=== PATIENT | female | born 1960 | race Caucasian/White ===

== ENCOUNTER → 2020-02-19 11:55 | Outpatient (BNVA) | payer OTHER, SELFPAY | PROVIDERS: Family Provider Nurse Practitioner Family; Visit Provider Nurse Practitioner Family | DX: K21.9 Gastro-esophageal reflux disease without esophagitis (principal); I10 Essential (primary) hypertension; J30.89 Other allergic rhinitis; E78.2 Mixed hyperlipidemia; F41.8 Other specified anxiety disorders; E07.9 Disorder of thyroid, unspecified; E55.9 Vitamin D deficiency, unspecified; Z79.899 Other long term (current) drug therapy | CPT/HCPCS: 80053; 80061; 81001; 82306; 83036; 84443; 85025 ==

== ENCOUNTER 2020-03-29 10:36 | Inpatient (IN) | payer OTHER, SELFPAY ==
[2020-03-29] VITALS (10 sets, daily range): BP systolic 105–169; BP diastolic 67–104; PULSE 66–90; RESP 16–18; TEMP 36.5–37.6; O2SAT 92–98; BMI 30.6
--- NOTE | 2020-03-29 10:38 | ED_ITS ---
HPI - Abdominal Pain General: Chief Complaint: Urogenital-Female Stated Complaint: abd pain Time Seen by Provider: 03/29/20 10:38 History of Present Illness: HPI narrative: 60-year-old female presents to the emergency room with complaint of abdominal pain. She refers the pain to the right middle side of the abdomen. She has had several episodes of vomiting and nausea but no diarrhea. Her last bowel movement was yesterday. She denies any hematemesis or coffee-ground emesis. She has had urgency frequency and dysuria. She has had no known history of nephrolithiasis. MD elicited complaint: abdominal pain Pertinent past history: past UTI Onset (ago): day(s) (1) Pain Consistency: constant Location: RUQ and Other (Right middle abdomen) Severity: moderate Quality: cramping Radiation: none Migration to: no migration Exacerbating factors: other (Worse with urination) Relieving factors: nothing Associated Symptoms: Reports GI cramping, dysuria, nausea, poor appetite and vomiting; Denies bloating, change in bowel habits, change in stool character, chills, coffee ground emesis, constipation, diarrhea, dyspepsia, excessive flatus, fever(s), heartburn, hematochezia, hematuria, hematemesis, fecal incontinence, loose stools, melena and syncope Review of Systems Const: Denies: fever(s) or chills ENMT: Denies: throat pain, ear or mastoid pain, nasal discharge or nasal congestion Card: Denies: syncope Resp: Denies: dyspnea, productive cough or non-productive cough GI: Reports: nausea, vomiting and GI cramping; Denies: hematemesis, coffee ground emesis, heartburn, diarrhea, constipation, bloating, excessive flatus, fecal incontinence, change in bowel habits, change in stool character, hematochezia or melena : Reports: dysuria; Denies: hematuria Skin/Breast: Denies: rash or pruritus PFSH ED PFSH: Medical History Depression with anxiety Environmental and seasonal allergies Essential hypertension GERD (gastroesophageal reflux disease) Mixed hyperlipidemia Thyroid mass Vitamin D deficiency Surgical History H/O colonoscopy Colonoscopy [place] [address] Herrera normal - repeat in 10 yrs 2023 Social History Smoking and tobacco status: never smoked Second hand smoke exposure: No Smoking risk assessment/counseling performed?: No Alcohol intake: never Desire information about alcohol rehabilitation?: No Counseling given: No Physical Exam Const: COMMON NORMALS: no acute distress GENERAL APPEARANCE: cooperative and comfortable ORIENTATION/CONSCIOUSNESS: Yes awake, Yes oriented to person, Yes oriented to place and Yes oriented to time HENMT: COMMON NORMALS: normocephalic, atraumatic and hearing grossly normal bilaterally HEAD & SCALP: normocephalic and atraumatic Eye: COMMON NORMALS: Equal, round and reactive pupils present, EOMs intact bilaterally, conjunctivae normal and no scleral icterus CONJUNCTIVA: Yes conjunctivae normal PUPIL: Yes Equal, round and reactive pupils present Neck/C-Spine: COMMON NORMALS: full ROM, no lymphadenopathy, supple and no JVD Lymph: LYMPHATIC: no lymphadenopathy noted and no lymphedema noted Resp: COMMON NORMALS: normal respiratory effort, No retractions, No use of accessory muscles and clear to auscultation bilaterally AUSCULTATION: clear to auscultation bilaterally Cardio: COMMON NORMALS: no JVD, regular rate, regular rhythm and No murmurs present (Cardio) RATE: regular rate RHYTHM: regular rhythm GI: COMMON NORMALS: Soft to palpation and No hepatosplenomegaly present AUSCULTATION: Yes normoactive bowel sounds PALPATION: Yes Soft to palpation, No Tenderness to palpation present (GI), No Guarding due to palpation present (GI) and Yes No hepatosplenomegaly present : BLADDER/KIDNEY EXAM: Yes CVA tenderness Back/Pelvis: GENERAL BACK: Yes CVA tenderness CVA tenderness: right Extremity: COMMON NORMALS: normal to inspection, capillary refill normal, no clubbing, cyanosis or edema, no calf tenderness and no pedal edema Neuro: SENSORIUM/ORIENTATION: Yes oriented to person, Yes oriented to place and Yes oriented to time Skin: COMMON NORMALS: no rashes or lesions noted GENERAL SKIN EXAM: no rashes or lesions noted Course Vital Signs: Vital signs: Vital Signs Temperature 98.6 F 03/30/20 07:22 Pulse Rate 67 03/30/20 07:22 Respiratory Rate 22 H 03/30/20 07:22 Blood Pressure 138/80 03/30/20 07:22 Pulse Oximetry 91 03/30/20 07:22 MDM - Abdominal Pain MDM Narrative: Medical decision making narrative: Patient has significant CVA tenderness on the right we will go ahead and admit with a pyelonephritis. IV antibiotics IV fluid support and pain control. Patient has asymptomatic cholelithiasis with no evidence of cholecystitis Lab Data: Labs: Lab Results 03/29/20 03/29/20 03/29/20 Range/Units 10:54 10:54 10:54 WBC 14.4 H (4.0-10.0) 10^3/ uL RBC 5.05 (4.1-5.3) 10^6/u L Hgb 14.8 (11.5-15.3) g/dL Hct 44.4 (37.0-47.0) % MCV 87.9 (81-99) fL MCH 29.3 (28.0-34.0) pg MCHC 33.3 (30.0-36.0) g/dL RDW 11.7 L (12.1-15.1) % Plt Count 274 (130-400) 10^3/c mm MPV 10.1 (7.4-10.4) fL Neut % (Auto) 86.0 % Lymph % (Auto) 7.9 % Concho % (Auto) 5.3 % Eos % (Auto) 0.1 % Baso % (Auto) 0.2 % Neut # (Auto) 12.39 H (1.8-7.7) 10^3/u L Lymph # (Auto) 1.1 (0.8-4.8) 10^3/u L Concho # (Auto) 0.8 (0.2-0.9) 10^3/u L Eos # (Auto) 0.0 (0.0-0.8) 10^3/u L Baso # (Auto) 0.0 (0.0-0.1) 10^3/u L Nucleated RBC % (a uto) 0 % Nucleated RBCs # 0.0 /100WBC Sodium 138 (136-145) mmol/L Potassium 3.5 (3.5-5.1) mmol/L Chloride 102 (98-107) mmol/L Carbon Dioxide 24 (22-29) mmol/L Anion Gap 15.5 (5-19) BUN 15 (8-23) mg/dL Creatinine 0.8 (0.5-0.9) mg/dL GFR Calculation 72.7 L (90-130) mL/min Glucose 173 H (65-115) mg/dL Calculated Osmolal ity 286 (285-295) mOsm/k g Lactic Acid 2.8 H (0.5-2.2) mmol/L Lactic Acid (Sepsi s) (0.5-2.2) mmol/L Calcium 9.8 (8.5-10.5) mg/dL Total Bilirubin 0.5 (0.15-1.2) mg/dL AST 23 (0-32) U/L ALT 23 (0-33) U/L Alkaline Phosphata se 58 (35-105) IU/L Total Protein 8.5 (6.6-8.7) g/dL Albumin 5.0 (3.5-5.2) g/dL Globulin 3.5 (1.3-4.6) g/dL Lipase (13-60) U/L Urine Color (Yellow) Urine Appearance (CLEAR) Urine pH (5-7) Ur Specific Gravit y (1.005-1.030) Urine Protein (Negative) Urine Glucose (UA) (Normal) Urine Ketones (Negative) Urine Blood (Negative) Urine Nitrate (Negative) Urine Bilirubin (NEGATIVE) Urine Urobilinogen (Negative) mg/dL Ur Leukocyte Galina ase (Negative) Urine RBC (0-2) /hpf Urine WBC (0-5) /hpf Ur Squamous Epith Cells (0-5) Amorphous Sediment Urine Bacteria (NONE) 03/29/20 03/29/20 03/29/20 Range/Units 10:54 12:16 13:52 WBC (4.0-10.0) 10^3/ uL RBC (4.1-5.3) 10^6/u L Hgb (11.5-15.3) g/dL Hct (37.0-47.0) % MCV (81-99) fL MCH (28.0-34.0) pg MCHC (30.0-36.0) g/dL RDW (12.1-15.1) % Plt Count (130-400) 10^3/c mm MPV (7.4-10.4) fL Neut % (Auto) % Lymph % (Auto) % Concho % (Auto) % Eos % (Auto) % Baso % (Auto) % Neut # (Auto) (1.8-7.7) 10^3/u L Lymph # (Auto) (0.8-4.8) 10^3/u L Concho # (Auto) (0.2-0.9) 10^3/u L Eos # (Auto) (0.0-0.8) 10^3/u L Baso # (Auto) (0.0-0.1) 10^3/u L Nucleated RBC % (a uto) % Nucleated RBCs # /100WBC Sodium (136-145) mmol/L Potassium (3.5-5.1) mmol/L Chloride (98-107) mmol/L Carbon Dioxide (22-29) mmol/L Anion Gap (5-19) BUN (8-23) mg/dL Creatinine (0.5-0.9) mg/dL GFR Calculation (90-130) mL/min Glucose (65-115) mg/dL Calculated Osmolal ity (285-295) mOsm/k g Lactic Acid (0.5-2.2) mmol/L Lactic Acid (Sepsi s) 2.7 H (0.5-2.2) mmol/L Calcium (8.5-10.5) mg/dL Total Bilirubin (0.15-1.2) mg/dL AST (0-32) U/L ALT (0-33) U/L Alkaline Phosphata se (35-105) IU/L Total Protein (6.6-8.7) g/dL Albumin (3.5-5.2) g/dL Globulin (1.3-4.6) g/dL Lipase 28 (13-60) U/L Urine Color Yellow (Yellow) Urine Appearance Hazy A (CLEAR) Urine pH 6.5 (5-7) Ur Specific Gravit y 1.010 (1.005-1.030) Urine Protein Neg (Negative) Urine Glucose (UA) Norm (Normal) Urine Ketones Negative (Negative) Urine Blood 2+ H (Negative) Urine Nitrate Negative (Negative) Urine Bilirubin Neg (NEGATIVE) Urine Urobilinogen Norm (Negative) mg/dL Ur Leukocyte Galina ase 2+ H (Negative) Urine RBC 0-4 H (0-2) /hpf Urine WBC 10-15 H (0-5) /hpf Ur Squamous Epith Cells 0-4 H (0-5) Amorphous Sediment Not Reportable Urine Bacteria 4+ H (NONE) Discharge Plan Discharge Patient Disposition: Admitted As Inpatient Admit Provider: Leela Wiseman Clinical Impression: Pyelonephritis, Sepsis, Cholelithiasis Condition: Stable Interventions: ED Discharge Assessment Last Done: 03/29/20 14:59 ED Charges Last Done: 03/29/20 14:59 Discharge Date/Time: 03/29/20 15:00 Coding Level of Care Code ED Hand Alterations Seamstress for Chg Fwd Exam Comprehensive
[2020-03-29] MEDS: sodium chloride 0.9% 1,000 ML 999 ML IV ×2 (10:59→13:48)
[2020-03-29] MEDS: ondansetron 2 mg/ML SDV 2 mL 4 MG IVP (10:59)
[2020-03-29 11:01] LABS: Basophils % 0.2 %; Eosinophils % 0.1 %; Hematocrit 44.4 % (37.0-47.0); Hemoglobin 14.8 g/dL (11.5-15.3); Lymphocytes # 1.1 10^3/uL (0.8-4.8); Lymphocytes % 7.9 %; Mean Corpuscular HGB Conc 33.3 g/dL (30.0-36.0); Mean Corpuscular Hemoglobin 29.3 pg (28.0-34.0); Mean Corpuscular Volume 87.9 fL (81-99); Mean Platelet Volume 10.1 fL (7.4-10.4); Monocytes # 0.8 10^3/uL (0.2-0.9); Monocytes % 5.3 %; Neutrophils # 12.39 10^3/uL (1.8-7.7); Nucleated Red Blood Cells % 0 %; Platelet Count 274 10^3/cmm (130-400); Red Blood Count 5.05 10^6/uL (4.1-5.3); Red Cell Distribution Width 11.7 % (12.1-15.1); White Blood Count 14.4 10^3/uL (4.0-10.0)
[2020-03-29 11:23] LABS: Alanine Aminotransferase 23 U/L (0-33); Alkaline Phosphatase 58 IU/L (35-105); Anion Gap 15.5 (5-19); Aspartate Amino Transferase 23 U/L (0-32); Blood Urea Nitrogen 15 mg/dL (8-23); Calcium 9.8 mg/dL (8.5-10.5); Carbon Dioxide 24 mmol/L (22-29); Chloride 102 mmol/L (98-107); Globulin 3.5 g/dL (1.3-4.6); Glomerular Filtration Rate 72.7 mL/min (90-130); Glucose 173 mg/dL (65-115); Osmolality Calculated 286 mOsm/kg (285-295); Potassium 3.5 mmol/L (3.5-5.1); Sodium 138 mmol/L (136-145); Total Bilirubin 0.5 mg/dL (0.15-1.2); Total Protein 8.5 g/dL (6.6-8.7)
[2020-03-29 11:50] LABS: Lactic Sepsis W/Reflex 2.8 mmol/L (0.5-2.2)
--- NOTE | 2020-03-29 12:39 | CT_ITS ---
WS: [id number] CT ABDOMEN AND PELVIS WITH CONTRAST HISTORY: Abdominal pain. TECHNIQUE: Imaging performed of the abdomen and pelvis with IV contrast. Single phase imaging of the abdomen. Coronal and sagittal reformats are submitted. All CT scans at [facility] use at least one of these dose optimization techniques: automated exposure control; mA and/or kV adjustment per patient size (includes targeted exams where dose is matched to clinical indication); or iterativ e reconstruction. IV CONTRAST: Omnipaque 300; 95 mL IV. Oral contrast: No DLP: 1031.68 mGy.cm COMPARISON: None available. Lower thorax: Mild dependent changes at the lung bases. Heart is normal size. Large hiatal hernia. Ap proximately 50% of the stomach is intrathoracic. Liver/biliary system: Normal size liver. There are a few scattered hypodense areas. Some of these are too small to characterize. The largest in the inferior RIGHT lobe is a cyst measuring 13 x 16 mm. No bile duct dilatation. Gallbladder: Normally distended gallbladder. There is mild wall thickening and some mild edema and bernabe ziness at the base of the gallbladder and stones. No common bile duct dilatation. Pancreas: Normal. Spleen: Normal. Adrenal glands: Normal. Right kidney: Too small to characterize hypodensities in the lower pole. No obstruction or mass. Left kidney: Several small cysts the largest measures 11 mm from the medial mid kidney. Aorta: Mild atherosclerosis with no aneurysm. Lymphadenopathy: None. Free fluid: None. GI tract: Normal appendix. Mild fecal retention throughout the colon. No strictures or obstruction. Abdominal wall: Very small umbilical hernia. Contains fat only. Pelvis: Atrophic uterus. No pelvic mass or adenopathy. Urinary bladder is negative. Bones: Degenerative disc disease at L5-S1. CT/CT abdomen pelvis w con* [id number] IMPRESSION: 1. Findings suspicious for early cholecystitis with associated cholelithiasis. 2. No bile duct dilatation. 3. Hepatic cyst. 4. Normal appendix.
[2020-03-29 12:46] LABS: Add Urine Microscopic? YES; Bilirubin Urine Neg (NEGATIVE); Blood Urine 2+ (Negative); Glucose Urine UA Norm (Normal); Ketones Urine Negative (Negative); Leukocyte Esterase Urine 2+ (Negative); Nitrate Urine Negative (Negative); Protein Urine Neg (Negative); Urine Appearance Hazy (CLEAR); Urine Color Yellow (Yellow); Urobilinogen Urine Norm (Negative); pH Urine 6.5 (5-7)
[2020-03-29 12:47] LABS: Add Urine Culture? Yes; Bacteria Urine 4+; RBC Urine 0-4 /hpf (0-2); Squamous Epithelial Cell Urine 0-4 (0-5)
[2020-03-29 13:06] LABS: Reflex Lactate Order REFLEX LACTIC ORDERD
[2020-03-29] MEDS: iohexol 300 mg/mL 100 mL Btl IV (13:32)
[2020-03-29] MEDS: morphine 4 mg/mL SDV 1 mL 2 MG IVP ×2 (13:48→14:56)
[2020-03-29] MEDS: cefTRIAXone 1,000 MG in sodium chloride 0.9% (plus) 50 ML 100 MG IV (14:01)
[2020-03-29 14:12] LABS: Lactic Acid level (Lactate) 2.7 mmol/L (0.5-2.2)
[2020-03-29] MEDS: sodium chloride 0.9% 1,000 ML 100 ML IV (15:49)
--- NOTE | 2020-03-29 16:25 | PM.HP ---
Providers/Chief Complaint Admitting Physician: Leela Wiseman MD Primary Care Provider: JUDITH Domínguez Chief Complaint: abd pain History of Present Illness Mely Harry is a 60 year old female with a past medical history of diabetes mellitus, depression, seasonal allergies, essential hypertension, GERD, hyperlipidemia, thyroid mass and vitamin D deficiency who presents to the ER today complaining of right-sided flank pain that started suddenly.She has had several episodes of vomiting and nausea but no diarrhea. No obstruction or mass in kidneys, no hydronephrosis. Mild fecal retention. Mild wall thickening around GB but clinically no evangelista sign. LFts within range. Review of Systems General: Reports: 10 or more systems reviewed and unremarkable except in HPI and below Const: Denies: fever(s), chills or body aches Eyes: Denies: change in vision, blurry vision or photophobia ENMT: Reports: hoarseness; Denies: throat pain, enlarged tonsils, odynophagia or nasal congestion Card: Denies: chest pain, palpitations, irregular heart rhythm, edema, swelling of feet/ankles, lightheadedness, pre-syncope, dyspnea on exertion or orthopnea Resp: Denies: dyspnea, productive cough, non-productive cough, wheezing, stridor, pain on inspiration, change in phlegm color, hemoptysis or chest congestion GI: Denies: abdominal pain, nausea, vomiting, hematemesis, coffee ground emesis, dysphagia, heartburn, diarrhea, constipation, GI cramping, change in stool character, hematochezia or melena : Denies: flank pain, difficulty voiding, dysuria, urinary frequency, urinary urgency, urinary hesitancy or hematuria Musc: Denies: neck pain, back pain, extremity pain, joint swelling, joint warmth or deformity Neuro: Denies: headache(s), numbness in extremities, weakness in extremities, sensory changes, difficulty walking, frequent falls, dizziness, vertigo, behavioral changes, Slurred speech present or seizure-like activity Psych: Denies: anxiety, depression, suicidal ideation or homicidal ideation Endo: Denies: polyuria, polydipsia, tired all the time, cold intolerance or hot flashes Rashad/Lymph: Denies: easy bruising or easy bleeding Medications/Allergies Home Medications Medication Instructions Recorded Confirmed Last Taken Type fenofibrate nanocrystallized 145 145 mg PO DAILY 90 Days #90 tab 02/19/20 03/29/20 03/28/20 Rx mg tablet fluticasone propionate 50 1 spray INTRANASAL BID 90 Days #16 02/19/20 03/29/20 03/29/20 Rx mcg/actuation nasal gm spray,suspension lisinopril 10 mg tablet 10 mg PO DAILY 90 Days #90 tab 02/19/20 03/29/20 03/29/20 Rx montelukast 10 mg tablet 10 mg PO DAILY 90 Days #90 tab 02/19/20 03/29/20 03/28/20 Rx pantoprazole 40 mg tablet,delayed 40 mg PO QAM 90 Days #90 tab 02/19/20 03/29/20 03/28/20 Rx release paroxetine HCl 20 mg tablet 20 mg PO DAILY 90 Days #90 tab 02/19/20 03/29/20 03/28/20 Rx [id number] 1 tab PO BID 03/29/20 03/29/20 03/28/20 History [Citracal-D3 Maximum Plus] docusate sodium 100 mg PO DAILY 03/29/20 03/29/20 03/28/20 History ergocalciferol (vitamin D2) 50,000 unit PO Q30D 03/29/20 03/29/20 02/28/20 History multivitamin 1 tab PO DAILY 03/29/20 03/29/20 03/28/20 History omega 1-sqi-pzw-fish oil [Fish Oil] 1 cap PO DAILY 03/29/20 03/29/20 03/28/20 History Allergies Allergy/AdvReac Type Severity Reaction Status Date / Time No Known Allergies Allergy Verified 02/26/20 14:17 PFSH Acute PFSH: Medical History Depression with anxiety Environmental and seasonal allergies Essential hypertension GERD (gastroesophageal reflux disease) Mixed hyperlipidemia Thyroid mass Vitamin D deficiency Surgical History H/O colonoscopy [place] [address] Herrera normal - repeat in 10 yrs 2023 Social History Smoking and tobacco status: never smoked Second hand smoke exposure: No Smoking risk assessment/counseling performed?: No Alcohol intake: never Desire information about alcohol rehabilitation?: No Counseling given: No Vitals/I&O/Wt Last Vital Signs Temp 98.8 F 03/29/20 15:51 Pulse 70 03/29/20 15:51 Resp 18 03/29/20 15:51 BP 152/80 03/29/20 15:51 Pulse Ox 94 03/29/20 15:51 03/29/20 03/29/20 03/29/20 06:59 14:59 22:59 Intake Total 2049 Balance 2049 Weight last 48 hrs Weight 83.461 kg Physical Exam Narrative: EXAM NARRATIVE: GEN: Awake, alert and oriented, no acute distress CVS: S1S2 N RS: CTA B/L Abd: Soft, nt/nd , bs+ 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 Data : 03/29/20 10:54 03/29/20 10:54 Micro: Microbiology 03/29/20 10:50 Blood Culture - Preliminary Blood SPECIMEN COLLECTED 03/29/20 10:54 Blood Culture - Preliminary Blood SPECIMEN COLLECTED A&P Assessment and plan (1) Sepsis: Status: Acute Qualifiers: Sepsis type: sepsis due to unspecified organism Sepsis acute organ dysfunction status: without acute organ dysfunction Qualified Code(s): A41.9 - Sepsis, unspecified organism (2) Pyelonephritis: Status: Acute (3) Cholelithiasis: Status: Acute Qualifiers: Cholelithiasis location: gallbladder Cholecystitis presence: without cholecystitis Biliary obstruction: without biliary obstruction Qualified Code(s): K80.20 - Calculus of gallbladder without cholecystitis without obstruction Additional A&P Information # Sepsis given leukocytosis, elevated lactate and likely source of infection + UA, + CVa tenderness right side Strat zosyn empirically check blood cx await urine cx Cholecytistis on CT abdomen but no clinical signs compatible with this, however check US gall baldder to evalute further. LFT within range. no pancreatitis on CT IVF NS clear liquid diet for now Attestations Medical Necessity Statement*: anticipate >2midnigh admisison for sepsis with pyelonephritis Coding Level of Care Code Acute Junior Technical Writer for Chg Fwd Diagnoses Sepsis A41.9 Sepsis type: sepsis due to unspecified organism Sepsis acute organ dysfunction status: without acute organ dysfunction Pyelonephritis N12 Cholelithiasis K80.20 Cholelithiasis location: gallbladder Cholecystitis presence: without cholecystitis Biliary obstruction: without biliary obstruction
[2020-03-29] MEDS: fluticasone nasal spray 16gm Btl 1 SPRAY INTRANASAL (16:59)
[2020-03-29] MEDS: enoxaparin 40 mg/0.4 mL Syringe SUBCUT (16:59)
[2020-03-29] MEDS: piperacillin-tazobactam 3.375 GM in sodium chloride 0.9% (plus) 50 ML IV (17:59)
[2020-03-29 19:29] LABS: Lipase 28 U/L (13-60)
[2020-03-30] VITALS (11 sets, daily range): BP systolic 106–142; BP diastolic 65–80; PULSE 65–93; RESP 16–22; TEMP 36.7–37.7; O2SAT 91–96
[2020-03-30] MEDS: piperacillin-tazobactam 3.375 GM in sodium chloride 0.9% (plus) 50 ML IV ×2 (01:40→12:45)
[2020-03-30] MEDS: sodium chloride 0.9% 1,000 ML 100 ML IV ×3 (01:40→23:22)
[2020-03-30] MEDS: ondansetron 2 mg/ML SDV 2 mL 4 MG IVP ×2 (01:43→23:45)
[2020-03-30] MEDS: HYDROmorphone 1 mg/mL INJ 1 mL IVP ×3 (01:43→23:39)
[2020-03-30 04:58] LABS: Basophils % 0.2 %; Hematocrit 38.3 % (37.0-47.0); Hemoglobin 12.4 g/dL (11.5-15.3); Lymphocytes # 1.5 10^3/uL (0.8-4.8); Lymphocytes % 13.2 %; Mean Corpuscular HGB Conc 32.4 g/dL (30.0-36.0); Mean Corpuscular Volume 92.5 fL (81-99); Mean Platelet Volume 10.7 fL (7.4-10.4); Monocytes # 0.8 10^3/uL (0.2-0.9); Monocytes % 6.7 %; Neutrophils # 9.12 10^3/uL (1.8-7.7); Neutrophils % 79.3 %; Nucleated Red Blood Cells % 0 %; Platelet Count 225 10^3/cmm (130-400); Red Blood Count 4.14 10^6/uL (4.1-5.3); White Blood Count 11.5 10^3/uL (4.0-10.0)
[2020-03-30 05:31] LABS: Alanine Aminotransferase 35 U/L (0-33); Albumin Level 3.7 g/dL (3.5-5.2); Alkaline Phosphatase 44 IU/L (35-105); Anion Gap 11.4 (5-19); Aspartate Amino Transferase 44 U/L (0-32); Blood Urea Nitrogen 10 mg/dL (8-23); Calcium 8.4 mg/dL (8.5-10.5); Carbon Dioxide 26 mmol/L (22-29); Chloride 108 mmol/L (98-107); Globulin 2.9 g/dL (1.3-4.6); Glomerular Filtration Rate 56.2 mL/min (90-130); Glucose 135 mg/dL (65-115); Osmolality Calculated 292 mOsm/kg (285-295); Potassium 3.4 mmol/L (3.5-5.1); Sodium 142 mmol/L (136-145); Total Bilirubin 0.5 mg/dL (0.15-1.2); Total Protein 6.6 g/dL (6.6-8.7)
[2020-03-30] MEDS: pantoprazole DR 40 mg Tablet PO ×2 (05:41→08:21)
[2020-03-30] MEDS: docusate sodium 100 mg Capsule PO (08:21)
[2020-03-30] MEDS: montelukast sodium 10 mg Tablet PO (08:21)
[2020-03-30] MEDS: lisinopril 10 mg Tablet PO (08:22)
[2020-03-30] MEDS: acetaminophen 325 mg Tablet 650 MG PO (10:30)
--- NOTE | 2020-03-30 10:41 | PC.CHAP ---
Pastoral Care Encounter/Spiritual Assessment Type of Contact [] Declined cnc mill programmer visit [] Patient/Family/Request visit [] Outpatient visit [] Follow-up visit [] Physician referral [] Code/Alert [] Routine visit [] Staff referral [] Actively dying [] Patient sleeping [] Family support [] [] Out of room [] Palliative care [] [] Receiving care in room [] Pre-surgical visit [] Trauma [] Long length of stay [] ICU visit [] Other: Relational/Emotional Strength [] Patient feels connected with others/family/visitors/staff [] Distress [] Loneliness/isolation [] Abandonment Spirituality of Patient [] Person of Ivone [] Attends Sikhism of their Ivone [] Believes in Prayer [] Reads Bible or Orthodox materials [] There are Spiritual issues to be addressed Customer Account Executive Interventions [] Prayer [] Active listening [] Non-anxious presence [] Spiritual/emotional support [] Crisis/trauma care [] Spiritual counseling [] Bereavement support [] Provided bereavement packet [] Provided Bible/devotional materials [] Provided toy/stuffed animal, coloring book to patient or family member [] Provided Communion [] Anointing/[place] [] Salvation [] Completed spiritual assessment [] Other: Impact on Illness or Injury [] Angry [] Fearful [] Anxious [] Often cries [] Exhaustion [] Unable to work [] Unable to attend rastafari [] Unable to walk/stand [] Unable to read [] Unable to drive [] Unable to eat/drink [] Unable to sleep [] Unable to be with family [] Patient intubated [] Other: Summary Patient busy with Staff, needs Follow up visit. Time spent with patient
[2020-03-30] MEDS: fluticasone nasal spray 16gm Btl 1 SPRAY INTRANASAL ×2 (11:12→17:33)
[2020-03-30] MEDS: fenofibrate 145 mg Tablet PO (11:17)
--- NOTE | 2020-03-30 13:03 | P.PN_ITS ---
Subjective Subjective: Interval history: Leukocytosis trending down to 11.5. Hemoglobin stable 12.4. Potassium at 3.4 today. Creatinine stable at 1.0. AST ALT mildly elevated at 44 and 35. Alkaline phosphatase 90 bili within range. T-max 99.7 overnight. Elongated gallbladder. No stones on ultrasound. Focal gallbladder wall thickening likely related to tumefactive sludge. Urine culture showing gram-negative rods greater than 100,000 colonie, pending identification. 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 Ext: R flank and epigatsric tenderness Data : 03/30/20 04:25 03/30/20 04:25 Micro: Microbiology 03/29/20 10:50 Blood Culture - Preliminary Blood NEGATIVE TO DATE 03/29/20 10:54 Blood Culture - Preliminary Blood NEGATIVE TO DATE 03/29/20 12:16 Urine Culture - Preliminary Urine,Clean Catch Gram Negative Rods A&P Assessment and plan (1) Sepsis: Status: Acute (2) Pyelonephritis: Status: Acute (3) Cholelithiasis: Status: Acute Additional A&P Information # Sepsis criteria met with leukocytosis, elevated lactate and source of infection + UA, urine cx with prelim GNR + CVA tenderness right side Clinical presentation appears to be most consistent with right-sided pyelonephritis. No obstructive stones or hydronephrosis seen on recent CAT scan. Continue zosyn empirically until gram-negative rods can be identified and guaman sceptibilities obtained. blood cx is negative to date Cholecytistis on CT abdomen and also with thickened gallbladder wall on recent ultrasound. The patient does not have classical Rivera sign on presentation and there appears to be an alternate explanation, uncertain if gallbladder could be contributing at this point as well. Will consult surgical services to evaluate further for cholecystitis. IVF NS @75cc/hr Patient wishes to advance her diet today, mechanical soft ordered. Prophylaxis with Lovenox Attestations Medical Necessity Statement*: Ongoing need for IV antibiotics, IV hydration in view of right-sided pyelonephritis and sepsis Coding Level of Care Code Acute Body Straightener for [facility] Fwd Diagnoses Sepsis A41.9 Pyelonephritis N12 Cholelithiasis K80.20
--- NOTE | 2020-03-30 16:30 | US_ITS ---
WS: [id number] RIGHT UPPER QUADRANT ULTRASOUND HISTORY: Cholecystitis noted on CT COMPARISON: CT 03/29/2020 Liver: 16.4 cm in length. Liver slightly enlarged with mild diffuse hepatic steatosis. Lobulated hepa tic cyst in the RIGHT lobe measures 2.5 x 1.8 x 1.7 cm. Gallbladder: Gallbladder is slightly elongated. Mild diffuse wall thickening measuring up to 7 mm. Mo re focal wall thickening seen on the transverse imaging on the hepatic side measuring additional 5 mm . This could be an area of tumefactive sludge. No stones are identified by CT. Stones about to be pre sent on the prior ultrasound. CBD: 0.4 cm Pancreas: Normal size and echogenicity. Right kidney: 11.0 cm in length. Normal size and echogenicity. Aorta and IVC: Unremarkable abdominal aorta and IVC. No ascites. US/US gall bladder [id number] IMPRESSION: 1. Mildly elongated gallbladder with diffuse wall thickening. No stones are id entified by ultrasound. Cholelithiasis was thought to be present on the recent CT. 2. Focal gallbladder wall thickening. Could be tumefactive sludge adhered to t he gallbladder. Early neoplasm is not excluded. There is no increased vasculari ty. 3. Mild hepatic steatosis and hepatomegaly.
[2020-03-30] MEDS: enoxaparin 40 mg/0.4 mL Syringe SUBCUT (17:33)
[2020-03-30] MEDS: PARoxetine 20 mg Tablet PO (19:56)
[2020-03-30] MEDS: ketorolac 30 mg/mL INJ 15 MG IVP (20:04)
[2020-03-30] MEDS: lidocaine 1% INJ 20 mL 5 ML IV (21:26)
[2020-03-30] MEDS: potassium chloride premix 40 MEQ/100 ML PREMIX 25 MEQ IV (21:26)
[2020-03-31] VITALS (10 sets, daily range): BP systolic 100–156; BP diastolic 54–82; PULSE 57–85; RESP 16–20; TEMP 36.6–37.5; O2SAT 86–97
[2020-03-31] MEDS: piperacillin-tazobactam 3.375 GM in sodium chloride 0.9% (plus) 50 ML IV ×3 (00:02→18:00)
[2020-03-31 04:55] LABS: Basophils % 0.3 %; Eosinophils % 0.3 %; Hemoglobin 11.6 g/dL (11.5-15.3); Lymphocytes # 1.6 10^3/uL (0.8-4.8); Lymphocytes % 16.9 %; Mean Corpuscular HGB Conc 31.4 g/dL (30.0-36.0); Mean Corpuscular Hemoglobin 29.4 pg (28.0-34.0); Mean Corpuscular Volume 93.7 fL (81-99); Mean Platelet Volume 10.4 fL (7.4-10.4); Monocytes # 0.6 10^3/uL (0.2-0.9); Monocytes % 5.9 %; Neutrophils # 7.15 10^3/uL (1.8-7.7); Neutrophils % 76.1 %; Nucleated Red Blood Cells % 0 %; Platelet Count 191 10^3/cmm (130-400); Red Blood Count 3.95 10^6/uL (4.1-5.3); Red Cell Distribution Width 11.9 % (12.1-15.1); White Blood Count 9.4 10^3/uL (4.0-10.0)
[2020-03-31 05:15] LABS: Lactate (Lactic Acid level) 0.9 mmol/L (0.5-2.2)
[2020-03-31 05:21] LABS: Alanine Aminotransferase 49 U/L (0-33); Albumin Level 3.6 g/dL (3.5-5.2); Alkaline Phosphatase 42 IU/L (35-105); Anion Gap 15.6 (5-19); Aspartate Amino Transferase 37 U/L (0-32); Blood Urea Nitrogen 13 mg/dL (8-23); Calcium 8.1 mg/dL (8.5-10.5); Carbon Dioxide 22 mmol/L (22-29); Chloride 108 mmol/L (98-107); Globulin 3.1 g/dL (1.3-4.6); Glomerular Filtration Rate 84.8 mL/min (90-130); Glucose 108 mg/dL (65-115); Osmolality Calculated 291 mOsm/kg (285-295); Potassium 3.6 mmol/L (3.5-5.1); Sodium 142 mmol/L (136-145); Total Bilirubin 0.4 mg/dL (0.15-1.2); Total Protein 6.7 g/dL (6.6-8.7)
[2020-03-31] MEDS: HYDROmorphone 1 mg/mL INJ 1 mL IVP ×2 (09:34→14:36)
[2020-03-31] MEDS: docusate sodium 100 mg Capsule PO (10:53)
[2020-03-31] MEDS: montelukast sodium 10 mg Tablet PO (10:53)
[2020-03-31] MEDS: pantoprazole DR 40 mg Tablet PO (10:54)
[2020-03-31] MEDS: fenofibrate 145 mg Tablet PO (10:54)
[2020-03-31] MEDS: lisinopril 10 mg Tablet PO (10:55)
--- NOTE | 2020-03-31 11:00 | P.PN_ITS ---
Subjective Subjective: Interval history: Afebrile, hemodynamically stable, leukocytosis continues to trend down, now normalized, E. coli isolated from urine cultures. Underwent HIDA scan due to persistent concern for cholecystitis and did show cystic duct blockage with poorly visualized gallbladder concerning for acute cholecystitis. Continues to feel nauseous, she ate 2 bites of her pancake and 1 bite of eggs today since then has been n.p.o. AST ALT at 37 and 49. T bili alkaline phosphatase within range. Medications: Reviewed: Yes Vitals/I&O/Wt Last Vital Signs Temp 98.8 F 03/31/20 09:20 Pulse 70 03/31/20 09:20 Resp 18 03/31/20 09:34 BP 156/82 03/31/20 09:20 Pulse Ox 97 03/31/20 09:34 03/30/20 03/31/20 03/31/20 22:59 06:59 14:59 Intake Total 1290 / 2960 200 / 3160 Balance 1290 / 2960 200 / 3160 Physical Exam Narrative: EXAM NARRATIVE: GEN: Awake, alert and oriented, moderate distress secondary to pain. CVS: S1S2 N RS: CTA B/L Abd: Soft, nt/nd , bs+ SEATING UPHOLSTERER: no focal neuro deficits Data : 03/31/20 04:35 03/31/20 04:35 Micro: Microbiology 03/29/20 12:16 Urine Culture - Final Urine,Clean Catch Escherichia coli 03/29/20 10:50 Blood Culture - Preliminary Blood NEGATIVE TO DATE 03/29/20 10:54 Blood Culture - Preliminary Blood NEGATIVE TO DATE A&P Assessment and plan (1) Acute cholecystitis: Status: Acute (2) Sepsis: Status: Acute (3) Pyelonephritis: Status: Acute (4) Mixed hyperlipidemia: Status: Acute (5) Vitamin D deficiency: Status: Acute (6) Essential hypertension: Status: Acute (7) Cholelithiasis: Status: Acute Additional A&P Information # Sepsis criteria met with leukocytosis, elevated lactate and source of infection + UA, urine cx with greater than 10,000 colonies of E. coli, + CVA tenderness right side Initial clinical presentation appeared to be most consistent with right-sided pyelonephritis. No obstructive stones or hydronephrosis seen on recent CAT scan. Her multiple studies CT abdomen, ultrasound of the gallbladder with suspicion for cholecystitis. Underwent confirmatory HIDA scan this morning which did show evidence of acute cholecystitis. It is hard to a certain how much of her right- sided flank pain is contributed by acute cholecystitis versus possible pyelonephritis. At any rate we will go ahead and continue broader spectrum coverage with Zosyn to cover for both. Surgery consult with Dr. Johnston, plan for cholecystectomy tomorrow as patient has eaten some breakfast today after her HIDA scan. blood cx is negative to date IVF dNS @75cc/hr Patient has not had a bowel movement since presentation, able to pass some flatus this morning. Will check x-ray abdomen to evaluate for any ileus. pain control wth dilaudid + toradol alternating # HTN: continue lisinopril, currently well controlled Now, n.p.o. past midnight for likely cholecystectomy in the morning. 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
--- NOTE | 2020-03-31 11:03 | XRR_ITS ---
PROCEDURE INFORMATION: Exam: XR Abdomen, 1 View Exam date and time: 03/31/2020 12:19 PM Age: 60 years old Clinical indication: Abdominal pain; Prior surgery; Surgery type: Tubal; Additional info: Distension, evaluate obstruction/ileus, right sided pain TECHNIQUE: Imaging protocol: XR of the abdomen. Views: Frontal supine view of the abdomen. 1 View. COMPARISON: CT abdomen pelvis w con* [id number] 03/29/2020 1:18 PM FINDINGS: Gastrointestinal tract: Bowel gas pattern is nonspecific. No mass effect upon the bowel loops. Distal rectal gas. Scattered loops of air filled small bowel none of which are dilated. Bones/joints: No acute process within the osseous structures of the spine or pelvis. Soft tissues: No appreciable calcifications XR/XR abdomen 1V* [id number] IMPRESSION: Bowel gas pattern is nonspecific.
--- NOTE | 2020-03-31 16:07 | XR_ITS ---
WS: [id number] Portable AP upright chest, 03/31/2020 Clinical Data: hypoxia Comparison: None. Findings: No nodules, masses or effusions are seen. The heart is enlarged. The pulmonary vascularity is not increased. No pneumonia or pneumothorax is seen. There is elevation of the right diaphragm wit h minimal atelectasis over the surface of that diaphragm. There is a hiatal hernia behind the heart. Monitor leads are on the chest wall. XR/XR chest 1V portable [id number] Impression: Cardiomegaly.
[2020-03-31 17:35] LABS: ABG PCO2 37.3 mmHg (35-45); ABG PH Result 7.43 (7.35-7.45); Arterial Blood Gas Hematocrit 37.8 % (37-47); Base Excess ABG 0.8 mmol/L (-2.0-2.0); Blood Gas Allen Test Pos; Blood Gas Sample Site Brachial, right; Blood Gas Sample Type Venous; HCO3 ABG 24.9 mmol/L (22-26); Oxygen Device ROOM AIR
--- NOTE | 2020-03-31 17:49 | NM_ITS ---
WS: [id number] NUCLEAR MEDICINE HIDA SCAN HISTORY: r/o acute cholecystitis COMPARISON: None available. TECHNIQUE: The patient was intravenously injected with 8.2 mCi of TC99m Mebrofenin. Immediate imaging over the right upper quadrant was followed by 5 minute image and additional images for a total of 60 minutes. Normal uptake of radiotracer throughout the liver. At 120 minutes there is no activity in the gallbladder identified. No hyperemia in the gallbladder fo ssa. Activity in the proximal small bowel was seen by 20 minutes. Good washout of the radiotracer from the liver by 60 minutes. NM/NM hepatobiliary wo phar [id number] IMPRESSION: 1. Patent common bile duct. 2. Nonvisualization of the gallbladder most consistent with an obstructed cyst ic duct and acute cholecystitis.
[2020-03-31] MEDS: dextrose 5%-sod chloride 0.9% 1,000 ML 75 ML IV (18:02)
[2020-03-31] MEDS: ketorolac 30 mg/mL INJ 15 MG IVP (19:54)
[2020-03-31] MEDS: PARoxetine 20 mg Tablet PO (19:58)
[2020-04-01] VITALS (17 sets, daily range): BP systolic 92–172; BP diastolic 55–90; PULSE 54–73; RESP 14–24; TEMP 36.2–37.2; O2SAT 88–96
[2020-04-01] MEDS: piperacillin-tazobactam 3.375 GM in sodium chloride 0.9% (plus) 50 ML IV ×2 (01:23→17:46)
[2020-04-01 05:23] LABS: Basophils % 0.5 %; Eosinophils # 0.1 10^3/uL (0.0-0.8); Eosinophils % 1.1 %; Hematocrit 34.6 % (37.0-47.0); Hemoglobin 11.4 g/dL (11.5-15.3); Lymphocytes # 1.4 10^3/uL (0.8-4.8); Lymphocytes % 17.4 %; Mean Corpuscular HGB Conc 32.9 g/dL (30.0-36.0); Mean Corpuscular Hemoglobin 29.8 pg (28.0-34.0); Mean Corpuscular Volume 90.3 fL (81-99); Mean Platelet Volume 10.7 fL (7.4-10.4); Monocytes # 0.5 10^3/uL (0.2-0.9); Monocytes % 6.5 %; Neutrophils # 6.05 10^3/uL (1.8-7.7); Nucleated Red Blood Cells % 0 %; Platelet Count 188 10^3/cmm (130-400); Red Blood Count 3.83 10^6/uL (4.1-5.3); Red Cell Distribution Width 11.7 % (12.1-15.1); White Blood Count 8.2 10^3/uL (4.0-10.0)
[2020-04-01 05:43] LABS: Alanine Aminotransferase 33 U/L (0-33); Albumin Level 3.2 g/dL (3.5-5.2); Alkaline Phosphatase 50 IU/L (35-105); Anion Gap 11.4 (5-19); Aspartate Amino Transferase 22 U/L (0-32); Blood Urea Nitrogen 8 mg/dL (8-23); Calcium 8.5 mg/dL (8.5-10.5); Carbon Dioxide 28 mmol/L (22-29); Chloride 105 mmol/L (98-107); Globulin 3.4 g/dL (1.3-4.6); Glomerular Filtration Rate 72.7 mL/min (90-130); Glucose 112 mg/dL (65-115); Osmolality Calculated 289 mOsm/kg (285-295); Potassium 3.4 mmol/L (3.5-5.1); Sodium 141 mmol/L (136-145); Total Bilirubin 0.5 mg/dL (0.15-1.2); Total Protein 6.6 g/dL (6.6-8.7)
[2020-04-01] MEDS: lisinopril 10 mg Tablet PO (08:02)
[2020-04-01] MEDS: ketorolac 30 mg/mL INJ 15 MG IVP (08:06)
[2020-04-01] MEDS: sodium chloride 0.9% 1,000 ML 30 ML IV (08:30)
--- NOTE | 2020-04-01 08:37 | P.ANESASSM_ITS ---
Pre-Anesthetic Assessment Pre-Anesthetic Assessment: Height/Weight: Height 1.65 m Weight 83.461 kg Temp Pulse Resp BP Pulse Ox 97.1 F L 57 L 18 172/90 94 04/01/20 08:21 04/01/20 08:21 04/01/20 08:21 04/01/20 08:21 04/01/20 08:21 Preop Diagnosis: Acute cholecystitis Proposed Procedure: Operation Date: 04/01/20 09:00 Proposed Procedures p Laparoscopic Cholecystectomy(Not Applicable) - Tomi Johnston MD Familial anesthetic complications: PONV had spinal before and she hurt for ayear afterwards Last intake: Intake Last Liquid Date 03/31/20 Last Liquid Time 23:30 Last Solid Date 03/28/20 Last Solid Time 18:00 Social: Social History: No alcohol and No tobacco Exam: Pre-Anes Outpt Exam: alert, oriented x 3, clear to auscultation bilaterally and regular rate & rhythm Airway: Cervical ROM: WNL MP: 4 Dentition: False Pulmonary: Comments: I feel like i'm getting pneumonia - got put on O2 last night currently 95% on Ra CV/HEM: CV/HEM: HTN GI: GI: GERD Metabolic: Metabolic: Thyroid Comments: Pre-DM Anesthetic Plan: ASA status: 2 Anesthesia: General Risk of > 500 ml blood loss (7ml/kg in children): No Meds/Allergies Current Medications: Current Medications Generic Name Dose Route Start Last Admin Trade Name Freq PRN Reason Stop Dose Admin Acetaminophen 650 mg 03/29/20 16:35 03/30/20 10:30 Tylenol PO 650 mg Q6H PRN Administration Mild/Mod Pain Or Temp >/= 101 Docusate Sodium 100 mg 03/30/20 09:00 04/01/20 08:01 Colace PO Not Given DAILY CANDY Enoxaparin Sodium 40 mg 03/29/20 17:00 03/30/20 17:33 Lovenox SUBCUT 40 mg Q24H CANDY Administration Fenofibrate 145 mg 03/30/20 09:00 03/31/20 10:54 Tricor PO 145 mg DAILY CANDY Administration Fluticasone Propio della 1 spray 03/29/20 18:00 04/01/20 08:02 Flonase INTRANASAL Not Given BID CANDY Hydromorphone HCl 1 mg 03/29/20 20:00 03/31/20 14:36 Dilaudid Inj IVP 1 mg Q4H PRN Administration pain Piperacillin Sod/T azobactam 50 mls @ 12.5 mls /hr 03/29/20 18:00 04/01/20 01:23 Sod 3.375 gm/ So dium Chloride IV 12.5 mls/hr Q8H CANDY Administration Dextrose/Sodium Ch loride 1,000 mls @ 75 ml s/hr 03/31/20 11:15 04/01/20 08:01 Dextrose 5%-Sod Chloride 0.9% IV Not Given .[id number] CANDY Sodium Chloride 1,000 mls @ 30 ml s/hr 04/01/20 08:30 04/01/20 08:30 Sodium Chloride 0.9% IV 04/02/20 08:29 30 mls/hr .Q24H CANDY Administration Ketorolac Trometha mine 15 mg 03/29/20 20:00 04/01/20 08:06 Toradol IVP 04/03/20 19:59 15 mg Q8H PRN Administration MODERATE PAIN Lisinopril 10 mg 03/30/20 09:00 04/01/20 08:02 Prinivil PO 10 mg DAILY CANDY Administration Montelukast Sodium 10 mg 03/30/20 09:00 04/01/20 08:01 Singulair PO Not Given DAILY CANDY Ondansetron HCl 4 mg 03/29/20 15:10 03/30/20 23:45 Zofran IVP 4 mg Q6H PRN Administration NAUSEA AND VOMITI NG Pantoprazole Sodiu m 40 mg 03/30/20 06:00 04/01/20 05:20 Protonix PO Not Given QAM CANDY Paroxetine HCl 20 mg 03/30/20 20:00 03/31/20 19:58 Paxil PO 20 mg DAILY@2000 CANDY Administration PFSH Anesthesia PFSH: Medical History Depression with anxiety Environmental and seasonal allergies Essential hypertension GERD (gastroesophageal reflux disease) Mixed hyperlipidemia Thyroid mass Vitamin D deficiency Surgical History H/O colonoscopy [place] [address] Herrera normal - repeat in 10 yrs 2024 Social History Smoking and tobacco status: never smoked Second hand smoke exposure: No Smoking risk assessment/counseling performed?: No Alcohol intake: never Desire information about alcohol rehabilitation?: No Counseling given: No Data Anesthesia CBC & Chem 7: 04/01/20 05:02 04/01/20 05:02 Other Labs: Laboratory Results - last 48 hr 03/31/20 03/31/20 03/31/20 04:35 04:35 04:35 WBC 9.4 RBC 3.95 L Hgb 11.6 Hct 37.0 MCV 93.7 MCH 29.4 MCHC 31.4 RDW 11.9 L Plt Count 191 MPV 10.4 Neut % (Auto) 76.1 Lymph % (Auto) 16.9 Simpson % (Auto) 5.9 Eos % (Auto) 0.3 Baso % (Auto) 0.3 Neut # (Auto) 7.15 Lymph # (Auto) 1.6 Simpson # (Auto) 0.6 Eos # (Auto) 0.0 Baso # (Auto) 0.0 Nucleated RBC % (auto) 0 Nucleated RBCs # 0.0 Specimen Type Sample Site ABG pH ABG pCO2 ABG pO2 ABG HCO3 ABG Base Excess Mainor Test Hematocrit O2 Delivery Device Research Librarian ID Sodium 142 Potassium 3.6 Chloride 108 H Carbon Dioxide 22 Anion Gap 15.6 BUN 13 Creatinine 0.7 GFR Calculation 84.8 L Glucose 108 Calculated Osmolality 291 Lactate 0.9 Calcium 8.1 L Total Bilirubin 0.4 AST 37 H ALT 49 H Alkaline Phosphatase 42 Total Protein 6.7 Albumin 3.6 Globulin 3.1 03/31/20 04/01/20 04/01/20 17:35 05:02 05:02 WBC 8.2 RBC 3.83 L Hgb 11.4 L Hct 34.6 L MCV 90.3 MCH 29.8 MCHC 32.9 RDW 11.7 L Plt Count 188 MPV 10.7 H Neut % (Auto) 74.0 Lymph % (Auto) 17.4 Simpson % (Auto) 6.5 Eos % (Auto) 1.1 Baso % (Auto) 0.5 Neut # (Auto) 6.05 Lymph # (Auto) 1.4 Simpson # (Auto) 0.5 Eos # (Auto) 0.1 Baso # (Auto) 0.0 Nucleated RBC % (auto) 0 Nucleated RBCs # 0.0 Specimen Type Venous Sample Site Brachial, right ABG pH 7.43 ABG pCO2 37.3 ABG pO2 62.0 L ABG HCO3 24.9 ABG Base Excess 0.8 Mainor Test Pos Hematocrit 37.8 O2 Delivery Device Room air Research Librarian ID Jlg Sodium 141 Potassium 3.4 L Chloride 105 Carbon Dioxide 28 Anion Gap 11.4 BUN 8 Creatinine 0.8 GFR Calculation 72.7 L Glucose 112 Calculated Osmolality 289 Lactate Calcium 8.5 Total Bilirubin 0.5 AST 22 ALT 33 Alkaline Phosphatase 50 Total Protein 6.6 Albumin 3.2 L Globulin 3.4 Micro: Microbiology 03/29/20 12:16 Urine Culture - Final Urine,Clean Catch Escherichia coli Cardiac Studies: No Data to Display
[2020-04-01] MEDS: scopolamine 1.5 Patch 1 PATCH TRANSDERMA (08:51)
--- NOTE | 2020-04-01 11:02 | PM.PN ---
Subjective Subjective: Interval history: Patient denies significant pain, no nausea or vomiting Vitals/I&O/Wt Last Vital Signs Temp 97.1 F L 04/01/20 08:21 Pulse 57 L 04/01/20 08:21 Resp 18 04/01/20 08:21 BP 172/90 04/01/20 08:21 Pulse Ox 94 04/01/20 08:21 03/31/20 04/01/20 04/01/20 22:59 06:59 14:59 Intake Total 50 / 100 Balance 50 / 100 Physical Exam Narrative: EXAM NARRATIVE: Abdomen: Soft Data : 04/01/20 05:02 04/01/20 05:02 Micro: Microbiology 03/29/20 12:16 Urine Culture - Final Urine,Clean Catch Escherichia coli A&P Assessment and plan (1) Acute cholecystitis: Plan for laparoscopic possible open cholecystectomy today Procedure, risks, benefits and alternatives have been discussed with the patient who wishes to proceed with surgery. 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
--- NOTE | 2020-04-01 11:04 | PM.CONSULT ---
Providers/Reason For Consult Consulting Physican/Specialty*: Dr. Wiseman Reason for Consult*: Cholecystitis, date of encounter is a 03/31/2020 Attending Physician: Leela Wiseman MD Primary Care Provider: JUDITH Domínguez History of Present Illness History of Present Illness Mely Harry is a 60 year old female who was admitted to the hospital with right-sided abdominal pain associated nausea and vomiting over the last 24 to 48 hours. Patient is suspected to have pyelonephritis and admitted for IV antibiotics. Her CT scan showed possible acute cholecystitis and therefore a HIDA scan was obtained which showed acute cholecystitis. Currently patient complains of abdominal pain in the right flank and right upper quadrant but no nausea or vomiting. She is tolerating a clear liquid diet. Denies any history of peptic ulcer disease. No fevers or chills. Meds/Allergies Home Medications and Allergies Home Medications Medication Instructions Recorded Confirmed Last Taken Type fenofibrate nanocrystallized 145 145 mg PO DAILY 90 Days #90 tab 02/19/20 03/29/20 03/28/20 Rx mg tablet fluticasone propionate 50 1 spray INTRANASAL BID 90 Days #16 02/19/20 03/29/20 03/29/20 Rx mcg/actuation nasal gm spray,suspension lisinopril 10 mg tablet 10 mg PO DAILY 90 Days #90 tab 02/19/20 03/29/20 03/29/20 Rx montelukast 10 mg tablet 10 mg PO DAILY 90 Days #90 tab 02/19/20 03/29/20 03/28/20 Rx pantoprazole 40 mg tablet,delayed 40 mg PO QAM 90 Days #90 tab 02/19/20 03/29/20 03/28/20 Rx release paroxetine HCl 20 mg tablet 20 mg PO DAILY 90 Days #90 tab 02/19/20 03/29/20 03/28/20 Rx [id number] 1 tab PO BID 03/29/20 03/29/20 03/28/20 History [Citracal-D3 Maximum Plus] docusate sodium 100 mg PO DAILY 03/29/20 03/29/20 03/28/20 History ergocalciferol (vitamin D2) 50,000 unit PO Q30D 03/29/20 03/29/20 02/28/20 History multivitamin 1 tab PO DAILY 03/29/20 03/29/20 03/28/20 History omega 8-rey-jfr-fish oil [Fish Oil] 1 cap PO DAILY 03/29/20 03/29/20 03/28/20 History Allergies Allergy/AdvReac Type Severity Reaction Status Date / Time No Known Allergies Allergy Verified 02/26/20 14:17 Current Medications Current Medications Generic Name Dose Route Start Last Admin Trade Name Freq PRN Reason Stop Dose Admin Acetaminophen 650 mg 03/29/20 16:35 03/30/20 10:30 Tylenol PO 650 mg Q6H PRN Administration Mild/Mod Pain Or Temp >/= 101 Docusate Sodium 100 mg 03/30/20 09:00 04/01/20 08:01 Colace PO Not Given DAILY [facility] Enoxaparin Sodium 40 mg 03/29/20 17:00 03/30/20 17:33 Lovenox SUBCUT 40 mg Q24H CANDY Administration Fenofibrate 145 mg 03/30/20 09:00 04/01/20 08:40 Tricor PO Not Given DAILY [facility] Fluticasone Propionate 1 spray 03/29/20 18:00 04/01/20 08:02 Flonase INTRANASAL Not Given BID CANDY Hydromorphone HCl 1 mg 03/29/20 20:00 03/31/20 14:36 Dilaudid Inj IVP 1 mg Q4H PRN Administration pain Piperacillin Sod/Tazobactam 50 mls @ 12.5 mls/hr 03/29/20 18:00 04/01/20 01:23 Sod 3.375 gm/ Sodium Chloride IV 12.5 mls/hr Q8H CANDY Administration Dextrose/Sodium Chloride 1,000 mls @ 75 mls/hr 03/31/20 11:15 04/01/20 08:01 Dextrose 5%-Sod Chloride 0.9% IV Not Given .[id number] CANDY Sodium Chloride 1,000 mls @ 30 mls/hr 04/01/20 08:30 04/01/20 08:30 Sodium Chloride 0.9% IV 04/02/20 08:29 30 mls/hr .Q24H CANDY Administration Ketorolac Tromethamine 15 mg 03/29/20 20:00 04/01/20 08:06 Toradol IVP 04/03/20 19:59 15 mg Q8H PRN Administration MODERATE PAIN Lisinopril 10 mg 03/30/20 09:00 04/01/20 08:02 Prinivil PO 10 mg DAILY CANDY Administration Montelukast Sodium 10 mg 03/30/20 09:00 04/01/20 08:01 Singulair PO Not Given DAILY CANDY Ondansetron HCl 4 mg 03/29/20 15:10 03/30/20 23:45 Zofran IVP 4 mg Q6H PRN Administration NAUSEA AND VOMITING Pantoprazole Sodium 40 mg 03/30/20 06:00 04/01/20 05:20 Protonix PO Not Given QAM CANDY Paroxetine HCl 20 mg 03/30/20 20:00 03/31/20 19:58 Paxil PO 20 mg DAILY@1999 CANDY Administration PFSH Acute PFSH: Medical History Depression with anxiety Environmental and seasonal allergies Essential hypertension GERD (gastroesophageal reflux disease) Mixed hyperlipidemia Thyroid mass Vitamin D deficiency Surgical History H/O colonoscopy [place] [address] Herrera normal - repeat in 10 yrs 2023 Social History Smoking and tobacco status: never smoked Second hand smoke exposure: No Smoking risk assessment/counseling performed?: No Alcohol intake: never Desire information about alcohol rehabilitation?: No Counseling given: No Vitals/I&O/Wt Last Vital Signs Temp 97.1 F L 04/01/20 08:21 Pulse 57 L 04/01/20 08:21 Resp 18 04/01/20 08:21 BP 172/90 04/01/20 08:21 Pulse Ox 94 04/01/20 08:21 03/31/20 04/01/20 04/01/20 22:59 06:59 14:59 Intake Total 50 / 100 Balance 50 / 100 Physical Exam Narrative: EXAM NARRATIVE: HEENT: Normocephalic Eye: Sclera /conjunctiva normal Respiratory and chest: Bilateral clear breath sounds on auscultation Cardiovascular: Normal S1 and S2 heart sounds Abdomen: Soft to palpation, tender right upper quadrant, Rivera sign positive Neurological: Oriented to place person and time Skin: Intact, no lesions appreciated on gross exam Data Micro: Micro: Microbiology 03/29/20 12:16 Urine Culture - Fi nal Urine,Clean Catch Escherichia col i Other Data: Other data: CT abdomen pelvis: Early calculus cholecystitis Ultrasound gallbladder: Elongated gallbladder with diffuse gallbladder wall thickening HIDA scan: Nonfilling of the gallbladder consistent with acute cholecystitis A&P Assessment and plan (1) Acute cholecystitis: 60-year-old female with right flank pain noted to have pyelonephritis as well as acute cholecystitis. Patient is currently on IV Zosyn. Patient ate this morning after HIDA scan was performed and therefore will put her on the schedule tomorrow for laparoscopic possible open cholecystectomy. N.p.o. after midnight Continue IV Zosyn Status: Acute Coding Level of Care Code Acute Sourcing Associate for j luis Mcnamara Diagnoses Acute cholecystitis K81.0
--- NOTE | 2020-04-01 12:54 | PM.OP ---
Operative Report Date of procedure: April 01, 2020 Pre-op Diagnosis: Acute cholecystitis Post-op Diagnosis: Acute calculus cholecystitis Procedure Done: Laparoscopic cholecystectomy Specimens removed/disposition: Gallbladder, sent to pathology Surgeon: Tomi Johnston Anesthesia: General Condition: stable Disposition: PACU Procedure: The patient was taken to the operating room and was intubated under general anesthesia. After the antibiotic had been administered, the abdomen was prepped and draped in a sterile manner. Using a #15 blade, a 1 centimeter infraumbilical curvilinear incision was made and using an open Armin technique the peritoneal cavity was entered. A 10 millimeter port was placed and 15 millimeters of pneumoperitoneum was created. A 10 millimeter, 30 degrees scope was then introduced. Three 5 millimeter ports were placed in the epigastric, midclavicular and the anterior axillary line two fingerbreadths below the costal margin on the right side under the direct visualization. The gallbladder was acutely inflamed and decompressed using aspiration needle. Ratcheted forceps were introduced into the lateral most port and was used to retract the fundus of the gallbladder cephalad and using forceps the infundibulum of the gallbladder was retracted laterally. Using L-hook cautery the peritoneum overlying the Calot's triangle was opened medially and laterally until the cystic duct and the cystic artery were skeletonized. The dissection around the cystic artery and duct was difficult due to significant inflammation. Dissection was carried along the body of the gallbladder and after ensuring critical view of safety, 4 clips applied on the cystic duct and 3 clips applied on the cystic artery and cut leaving, 3 clips on the remaining portion of the duct and 2 clips on the remaining portion of the artery. The rest of the gallbladder was dissected off the liver using L-hook cautery. There was an opening made in the body of the gallbladder with spillage of bile which was irrigated and suctioned out. There was no bleeding or bile leaking noted from the gallbladder fossa and the clips appeared to be in place. An EndoCatch bag was introduced to remove the gallbladder. All the ports were removed under direct visualization and there was no bleeding noted from the port sites. The fascia of the umbilicus was closed using [id number] 0 Vicryl sutures and the subcutaneous tissue was approximated using 3-0 Vicryl sutures. The skin at all four ports were closed using 4-0 Monocryl and Dermabond. A total of 10 millimeters of 0.5% Marcaine was infiltrated around the port sites. The patient was stable throughout the procedure.
--- NOTE | 2020-04-01 13:08 | PM.PACU ---
PACU note Post-Anesthesia Exam: somnolent, arousable and vital signs stable Disposition: back to floor
--- NOTE | 2020-04-01 13:40 | PM.PN ---
Subjective Subjective: Interval history: Last evening patient had an episode of desaturation with O2 sat down to 86%. ABG at that time on room air showed pH 7.43/30 7.3/60 2/24.9. Chest was clear to examination at that time. Stat chest x-ray was obtained which did not show any pneumonia or pneumothorax. There is minimal atelectasis noted on the right diaphragm. Spirometry was added. As of this morning patient has been on room air saturating 95%. IV fluids were also made KVO at that time. This morning patient has been to the OR and underwent laparoscopic cholecystectomy. She tolerated the procedure well. No immediate postprocedure complications. Medications: Reviewed: Yes Vitals/I&O/Wt Last Vital Signs Temp 98.2 F 04/01/20 13:31 Pulse 65 04/01/20 13:32 Resp 18 04/01/20 13:31 BP 145/74 04/01/20 13:31 Pulse Ox 91 04/01/20 13:31 03/31/20 04/01/20 04/01/20 22:59 06:59 14:59 Intake Total 50 / 100 0 / 0 Output Total 25 / 25 Balance 50 / 100 -25 / -25 Physical Exam Narrative: EXAM NARRATIVE: GEN: Awake, alert and oriented, no acute distress CVS: S1S2 N RS: CTA B/L Abd: Soft, nt/nd , bs+ SPOOL TENDER: no focal neuro deficits Data : 04/01/20 05:02 04/01/20 05:02 Micro: Microbiology 03/29/20 12:16 Urine Culture - Final Urine,Clean Catch Escherichia coli A&P Assessment and plan (1) Acute cholecystitis: Status: Acute (2) Sepsis: Status: Acute (3) Pyelonephritis: Status: Acute (4) Mixed hyperlipidemia: Status: Acute (5) Vitamin D deficiency: Status: Acute (6) Essential hypertension: Status: Acute (7) Cholelithiasis: Status: Acute Additional A&P Information # Sepsis criteria met with leukocytosis, elevated lactate and source of infection upon admission, sepsis is now resolved. + UA, urine cx with greater than 10,000 colonies of E. coli, + CVA tenderness right side Initial clinical presentation appeared to be most consistent with right-sided pyelonephritis. No obstructive stones or hydronephrosis seen on recent CAT scan. In spite of appropriate antimicrobial coverage, patient continued to have intense right flank and abdominal pain including in the right upper quadrant with CT and ultrasound suspicious for cholecystitis. Underwent confirmatory HIDA scan subsequently which showed acute cholecystitis. She is now status post laparoscopic cholecystectomy. OR findings noted. Postprocedure patient is doing well. Clear liquid diet has been resumed. pain control wth dilaudid + toradol alternating Saturating well since this morning on room air. Would like to monitor closely postoperatively tonight given the episode of hypoxia last evening. We will plan for discharge antibiotic regimen of ciprofloxacin and Flagyl to complete total ~ 10 days of antibiotics. # HTN: continue lisinopril, currently well controlled Attestations Medical Necessity Statement*: Acute cholecystitis, pyelonephritis, need for IV antibiotics, postop monitoring from cholecystectomy. Coding Level of Care Code Acute Window Glass Installer for [facility] Fwd Diagnoses Acute cholecystitis K81.0 Sepsis A41.9 Pyelonephritis N12 Mixed hyperlipidemia E78.2 Vitamin D deficiency E55.9 Essential hypertension I10 Cholelithiasis K80.20
[2020-04-01] MEDS: enoxaparin 40 mg/0.4 mL Syringe SUBCUT (17:45)
[2020-04-01] MEDS: HYDROcodone-acetaminophen 5-325 mg Tablet 1 TAB PO (17:47)
[2020-04-01] MEDS: dextrose 5%-sod chloride 0.9% 1,000 ML 75 ML IV (20:17)
[2020-04-01] MEDS: PARoxetine 20 mg Tablet PO (20:18)
[2020-04-02] VITALS (7 sets, daily range): BP systolic 119–165; BP diastolic 75–93; PULSE 47–64; RESP 17–18; TEMP 36.3–36.9; O2SAT 91–97
[2020-04-02] MEDS: piperacillin-tazobactam 3.375 GM in sodium chloride 0.9% (plus) 50 ML IV ×2 (02:31→10:57)
[2020-04-02] MEDS: HYDROcodone-acetaminophen 5-325 mg Tablet 1 TAB PO ×2 (02:34→14:48)
[2020-04-02 05:25] LABS: Basophils % 0.1 %; Eosinophils % 0.1 %; Hematocrit 35.1 % (37.0-47.0); Hemoglobin 11.6 g/dL (11.5-15.3); Lymphocytes # 1.4 10^3/uL (0.8-4.8); Lymphocytes % 19.3 %; Mean Corpuscular Hemoglobin 29.9 pg (28.0-34.0); Mean Corpuscular Volume 90.5 fL (81-99); Mean Platelet Volume 10.6 fL (7.4-10.4); Monocytes # 0.5 10^3/uL (0.2-0.9); Monocytes % 7.1 %; Neutrophils # 5.31 10^3/uL (1.8-7.7); Neutrophils % 72.7 %; Nucleated Red Blood Cells % 0 %; Platelet Count 230 10^3/cmm (130-400); Red Blood Count 3.88 10^6/uL (4.1-5.3); Red Cell Distribution Width 11.6 % (12.1-15.1); White Blood Count 7.3 10^3/uL (4.0-10.0)
[2020-04-02] MEDS: pantoprazole DR 40 mg Tablet PO (05:30)
[2020-04-02 05:46] LABS: Alanine Aminotransferase 28 U/L (0-33); Albumin Level 3.1 g/dL (3.5-5.2); Alkaline Phosphatase 52 IU/L (35-105); Anion Gap 13.6 (5-19); Aspartate Amino Transferase 17 U/L (0-32); Blood Urea Nitrogen 8 mg/dL (8-23); Calcium 8.7 mg/dL (8.5-10.5); Carbon Dioxide 24 mmol/L (22-29); Chloride 107 mmol/L (98-107); Globulin 3.4 g/dL (1.3-4.6); Glomerular Filtration Rate 72.7 mL/min (90-130); Glucose 152 mg/dL (65-115); Osmolality Calculated 291 mOsm/kg (285-295); Potassium 3.6 mmol/L (3.5-5.1); Sodium 141 mmol/L (136-145); Total Bilirubin 0.3 mg/dL (0.15-1.2); Total Protein 6.5 g/dL (6.6-8.7)
--- NOTE | 2020-04-02 07:30 | ANE.PACU2 ---
Inpatient post-anesthesia follow up: Airway intact: Yes Vital signs: Temperature 97.7 F Pulse Rate [Monito r] 90 Pulse Rate 47 Respiratory Rate 18 Blood Pressure [Ri ght Arm] 169/104 Blood Pressure 135/78 Pulse Oximetry 96 Oxygen Delivery Me thod Nasal Cannula Oxygen Flow Rate 3 Fraction of Inspir ed Oxygen Hydration adequate: Yes Nausea and vomiting: No Pain level: 4 Mental status: Baseline Additional Comments: patient experienced no PONV
--- NOTE | 2020-04-02 08:09 | P.PN_ITS ---
Subjective Subjective: Interval history: Patient feels great, denies any nausea or vomiting Vitals/I&O/Wt Last Vital Signs Temp 97.4 F L 04/02/20 07:38 Pulse 48 L 04/02/20 07:38 Resp 18 04/02/20 07:38 BP 165/93 04/02/20 07:38 Pulse Ox 97 04/02/20 07:38 04/01/20 04/02/20 04/02/20 22:59 06:59 14:59 Intake Total 410 / 1410 Output Total 300 / 325 500 / 500 Balance 110 / 1085 -500 / -500 Physical Exam Narrative: EXAM NARRATIVE: Abdomen: Soft, minimally tender, incision clean dry and intact Data : 04/02/20 04:47 04/02/20 04:47 A&P Assessment and plan (1) Status post laparoscopic cholecystectomy: Doing well, could go home from surgical standpoint with oral antibiotics for 5 days. Advance to regular diet Continue IS, wean off oxygen I will leave it up to Dr. Wiseman when she can go home Status: Acute Attestations Medical Necessity Statement*: Status post lap jerardo doing well Coding Level of Care Code Acute Lubricating Engineer for Chg Fwd Diagnoses Status post laparoscopic cholecystectomy Z90.49
[2020-04-02] MEDS: lisinopril 10 mg Tablet PO (08:41)
[2020-04-02] MEDS: docusate sodium 100 mg Capsule PO (08:41)
[2020-04-02] MEDS: montelukast sodium 10 mg Tablet PO (08:41)
[2020-04-02] MEDS: sennosides-docusate Tablet 1 TAB PO (08:41)
[2020-04-02] MEDS: fenofibrate 145 mg Tablet PO (08:43)
[2020-04-02 09:03] LABS: Coronavirus Lab Test PTC Negative
--- NOTE | 2020-04-02 12:52 | CT_ITS ---
WS: [id number] CT CHEST ANGIOGRAPHY WITH REFORMATS HISTORY: Evaluate for PE TECHNIQUE: Contiguous axial images are obtained through the chest during arterial injection of intrav enous contrast. Images are reconstructed to evaluate the pulmonary arteries. MIP imaging also reviewe d. All CT scans at [facility] use at least one of these dose optimization techniques: aut omated exposure control; mA and/or kV adjustment per patient size (includes targeted exams where dose is matched to clinical indication); or iterative reconstruction. CONTRAST: Omnipaque 350; 95 mL IV. DLP: 526.43 mGy.cm COMPARISON: None available. Very good opacification of the pulmonary arteries. No filling defects to suggest a pulmonary embolism . Mild atherosclerosis thoracic aorta with no aneurysm. Moderate enlargement of the cardiac chambers. No pericardial effusion. No significant adenopathy. There are small bilateral pleural effusions. Compressive atelectasis at the lung bases, greatest at t he RIGHT lung base. No pneumonia. Large hiatal hernia. Prior cholecystectomy. Small amount of soft tissue thickening at the cholecystectomy site is appropri ate for the recent cholecystectomy. No large fluid collections. Mild hepatic steatosis. No adrenal ma ss. Increase in thoracic kyphosis. No osteoblastic or osteolytic bone disease. CT/CT angio chest PE protcl [id number] IMPRESSION: 1. No pulmonary embolism. 2. Small bilateral pleural effusions with compressive atelectasis at the lung bases, slightly greater on the LEFT. 3. Moderate cardiomegaly. 4. Large hiatal hernia.
[2020-04-02] MEDS: iohexol 350 mg/mL 100 mL Btl IV (13:52)
--- NOTE | 2020-04-02 14:49 | PM.DCS ---
Discharge Providers Date of Admission: 03/29/20 14:12 Date of Discharge: April 02, 2020 Attending Provider at Admission: Leela Wiseman MD Attending Provider at Discharge: Leela Wiseman MD Primary Care Provider: JUDITH Domínguez Diagnoses at Discharge Discharge Diagnosis (1) Status post laparoscopic cholecystectomy: Status: Acute Reason for Visit Reason for Visit: abd pain Hospital Course Discharge Summary: Patient is a 60-year-old lady who was admitted on March 29 with chief complaints of right-sided. She pointed to the area of her right flank area. She was septic at the time of admission with leukocytosis elevated lactate which resolved with initiation of antibiotics and IV fluids. She did have a positive UA with urine culture showing significant colony count of E. coli and a positive right-sided CVA tenderness with initial impression concerning for right-sided pyelonephritis. CT did raise the suspicion of possible cholecystitis as well. Due to persisting pain in spite of appropriate antimicrobial coverage and otherwise improving leukocytosis she did undergo a confirmatory HIDA scan which returned with evidence of acute cholecystitis. Patient underwent laparoscopic cholecystectomy on April [address] Johnston. Patient tolerated this procedure well she has been advanced from a clear liquid to regular diet today and tolerating this just fine. Her pain is adequately controlled with alternating Dilaudid and Toradol. On March 31, she had an episode of desaturation down to 86% while laying in bed. Chest x-ray at that time showed right-sided atelectasis spirometry was added and fluids were discontinued after which she has been on room air. Today patient has been able to walk around in the hallway without any significant discomfort, however tells me that she feels extremely winded and short of breath after about 2 laps and she is concerned. She underwent a CTA of the chest to evaluate for PE and the study was negative for the same. Note was made of right-sided compressive atelectasis, likely as a result of cholecystitis and actual mild pleural effusions. She received one-time dose of Lasix 20 mg she is saturating 95% on room air at the time of discharge. Overall she is doing well. She is being discharged on levofloxacin and Flagyl to cover both for pyelonephritis and cholecystitis. She has completed 5 days of IV antibiotics in the hospital, and will be discharged home on an additional 5 days. Physical Exam Narrative: EXAM NARRATIVE: GEN: Awake, alert and oriented, no acute distress CVS: S1S2 N RS: Reduced air entry at the right lung base, otherwise no added sounds of auscultation. Abd: Soft, nt/nd , bs+ DAIRY SCIENCE TEACHER: no focal neuro deficits Discharge Data Data Completed and Pending: Completed Studies During Hospitalization Category Date Time Status CT abdomen pelvis w con* [id number] Stat Cat Scan 03/29/20 12:[address] angio chest PE protcl [id number] Rout ine Cat Scan 04/02/20 12:52 Completed CXRP [XR chest 1V portable [id number]] S tat Exams 03/31/20 16:07 Completed XR abdomen 1V* 74 [id number] Routine Exams 03/31/20 11:03 Completed NM hepatobiliary wo phar [id number] Rout ine Nuc Med 03/31/20 17:49 Completed US gall bladder 7 6705 Routine Ultrasound 03/30/20 16:30 Completed Pending at discharge Category Date Time Status ES surgery / GI i mages Routine Exams 04/01/20 10:31 Ordered Blood Culture Sta t Lab 03/29/20 10:50 Results Pathology: Surgic al [PTH] Routine Pth 04/01/20 12:38 Received Labs from last 24 hours 04/02/20 04/02/20 03/31/20 04:47 04:47 17:20 WBC 7.3 RBC 3.88 L Hgb 11.6 Hct 35.1 L MCV 90.5 MCH 29.9 MCHC 33.0 RDW 11.6 L Plt Count 230 MPV 10.6 H Neut % (Auto) 72.7 Lymph % (Auto) 19.3 [place] % (Auto) 7.1 Eos % (Auto) 0.1 Baso % (Auto) 0.1 Neut # (Auto) 5.31 Lymph # (Auto) 1.4 [place] # (Auto) 0.5 Eos # (Auto) 0.0 Baso # (Auto) 0.0 Nucleated RBC % (a uto) 0 Nucleated RBCs # 0.0 Sodium 141 Potassium 3.6 Chloride 107 Carbon Dioxide 24 Anion Gap 13.6 BUN 8 Creatinine 0.8 GFR Calculation 72.7 L Glucose 152 H Calculated Osmolal ity 291 Calcium 8.7 Total Bilirubin 0.3 AST 17 ALT 28 Alkaline Phosphata se 52 Total Protein 6.5 L Albumin 3.1 L Globulin 3.4 Nasal/Oral COVID-1 9 PCR Negative Vitals: Last Vital Signs Temp 98.2 F 04/02/20 11:43 Pulse 53 L 04/02/20 11:43 Resp 18 04/02/20 11:43 BP 119/75 04/02/20 11:43 Pulse Ox 95 04/02/20 11:43 Discharge Plan Discharge Patient Disposition: Home Condition: Stable Prescriptions: New hydrocodone-acetaminophen 5-325 mg Tablet 1 tab PO Q6H PRN (Reason: Moderate Pain) 7 Days Qty: 30 RF: 0 ketorolac 10 mg tablet 10 mg PO Q12H PRN (Reason: pain) 3 Days RF: 0 Continued pantoprazole [Protonix] 40 mg tablet,delayed release (DR/EC) 40 mg PO QAM 90 Days Qty: 90 RF: 1 lisinopril 10 mg tablet 10 mg PO DAILY 90 Days Qty: 90 RF: 1 fluticasone propionate [Flonase Allergy Relief] 50 mcg/actuation spray,suspension 1 spray INTRANASAL BID 90 Days Qty: 16 RF: 1 montelukast [Singulair] 10 mg tablet 10 mg PO DAILY 90 Days Qty: 90 RF: 1 paroxetine HCl 20 mg tablet 20 mg PO DAILY 90 Days Qty: 90 RF: 1 fenofibrate nanocrystallized 145 mg tablet 145 mg PO DAILY 90 Days Qty: 90 RF: 1 multivitamin Tablet 1 tab PO DAILY RF: 0 docusate sodium 100 mg Capsule 100 mg PO DAILY RF: 0 Fish Oil 1,000 mg (120 mg-180 mg) Capsule 1 cap PO DAILY RF: 0 Citracal-D3 Maximum Plus 325 mg-12.5 mcg -2.75 mg Tablet 1 tab PO BID RF: 0 ergocalciferol (vitamin D2) 1,250 mcg (50,000 unit) capsule 50,000 unit PO Q30D RF: 0 Discharge Orders: Discharge Order (Routine); Ordered 04/02/20 Ordered By: Leela Wiseman Referrals: Tomi Johnston MD [Physician] - 04/23/20 9:00 am (You have an appointment on April 23 at 9:00am) DAMON Dixon, OCEANOGRAPHIC METEOROLOGIST [Primary Care Provider] - 4-7 days Discharge Diet: Advance as tolerated Discharge Activity: Resume usual activity Activity Restrictions/Additional Instructions: 1. Up and walking as tolerated. 2. Ok to shower in 48 hours after surgery. 3. Remove Dermabond dressing in 7-10 days. 4. Do not lift more than 10 pounds. 5. Do not operate heavy machinery or drive while using pain medications. 6. Advised to return to ER or contact my office if there are any signs of infection like, increasing pain, fevers, chills, redness or drainage of pus. Discharge Attestations Time Spent in Discharge Care*: greater than 30 min Quality Metrics Clinical Quality Measures During this hospital stay, did patient experience: None Coding Level of Care Code Acute Geographic Information Systems Analyst for Chg Fwd Diagnoses Status post laparoscopic cholecystectomy Z90.49
[2020-04-02] MEDS: FUROsemide 20 mg Tablet PO (14:55)
--- NOTE | 2020-04-02 16:20 | PC.NURSE ---
Reviewed patient's discharge with patient at this time. Patient verbalized understanding of discharge instructions including follow up and medications. Patient IV removed intact. Patient wheel chaired to her private car.
== END 2020-04-02 16:05 | disposition home or self-care (01) | DRG 854 ==
LOC: ER 14:19 → MEDSURG 14:33
PROVIDERS: Surgery; Admitting Provider Student in an Organized Health Care Education/Training Program; Emergency Provider Family Medicine; PCP Nurse Practitioner Family; Visit Provider Student in an Organized Health Care Education/Training Program
PROC: 0FT44ZZ Resection of Gallbladder, Percutaneous Endoscopic Approach (ICD-10-PCS; CPT 47562; principal; 2020-04-01 09:00)
DX: A41.9 Sepsis, unspecified organism (principal); N12 Tubulo-interstitial nephritis, not specified as acute or chronic; J98.11 Atelectasis; K80.20 Calculus of gallbladder without cholecystitis without obstruction; I10 Essential (primary) hypertension; E11.9 Type 2 diabetes mellitus without complications; K21.9 Gastro-esophageal reflux disease without esophagitis; E55.9 Vitamin D deficiency, unspecified; K59.00 Constipation, unspecified; E78.2 Mixed hyperlipidemia; F41.8 Other specified anxiety disorders
CPT/HCPCS: 12345; 36415; 36600; 71045; 71275; 74018; 74177; 76705; 78226; 80053; 81001; 82803; 83605; 83690; 85025; 87040; 87077; 87086; 87186; 87635; 88304; 96372; 96375; 99283; A9537; J0696; J1100; J1170; J1200; J1650; J1885; J2250; J2270; J2405; J2543; J2704; J2710; J2765; J3010; J3480; J3490; J7030; Q9967

== ENCOUNTER → 2020-05-18 12:17 | Outpatient (BNVA) | payer OTHER, SELFPAY | PROVIDERS: PCP Nurse Practitioner Family; Visit Provider Nurse Practitioner Family | DX: Z11.59 Encounter for screening for other viral diseases (principal); Z20.828 Contact with and (suspected) exposure to other viral communicable diseases | CPT/HCPCS: 87400; 87635 ==

== ENCOUNTER → 2021-02-21 10:18 | Outpatient (BNVA) | payer OTHER, SELFPAY | PROVIDERS: PCP Nurse Practitioner Family; Visit Provider Nurse Practitioner Family | DX: I10 Essential (primary) hypertension (principal); E55.9 Vitamin D deficiency, unspecified; Z79.899 Other long term (current) drug therapy; E78.2 Mixed hyperlipidemia; M25.512 Pain in left shoulder; Z00.00 Encounter for general adult medical examination without abnormal findings; K21.9 Gastro-esophageal reflux disease without esophagitis; F41.8 Other specified anxiety disorders; G89.29 Other chronic pain | CPT/HCPCS: 36415; 80053; 80061; 81003; 82306; 83036; 84439; 84443; 85025 ==

== ENCOUNTER → 2021-05-17 11:51 | Outpatient (BNVA) | payer OTHER, SELFPAY | PROVIDERS: PCP Nurse Practitioner Family; Visit Provider Nurse Practitioner Family | DX: M25.551 Pain in right hip (principal); M25.552 Pain in left hip; M76.22 Iliac crest spur, left hip; M76.21 Iliac crest spur, right hip | CPT/HCPCS: 73523 ==

== ENCOUNTER → 2021-07-27 09:41 | Outpatient (BNVA) | payer OTHER, SELFPAY | PROVIDERS: PCP Nurse Practitioner Family; Visit Provider Specialist | DX: M25.551 Pain in right hip (principal); M25.552 Pain in left hip; M77.8 Other enthesopathies, not elsewhere classified | CPT/HCPCS: 73523 ==

== ENCOUNTER → 2022-02-23 09:11 | Outpatient (BNVA) | payer OTHER, SELFPAY | PROVIDERS: PCP Nurse Practitioner Family; Visit Provider Nurse Practitioner | DX: I10 Essential (primary) hypertension (principal); E55.9 Vitamin D deficiency, unspecified; E78.2 Mixed hyperlipidemia; Z51.81 Encounter for therapeutic drug level monitoring; E07.9 Disorder of thyroid, unspecified | CPT/HCPCS: 80053; 80061; 82306; 83036; 84443; 85025 ==

== ENCOUNTER → 2022-06-14 09:39 | Outpatient (BNVA) | payer OTHER, SELFPAY | PROVIDERS: PCP Nurse Practitioner; Visit Provider Nurse Practitioner | DX: R10.9 Unspecified abdominal pain (principal) | CPT/HCPCS: 80053; 85025 ==

== ENCOUNTER → 2022-08-31 14:53 | Outpatient (BNVA) | payer OTHER, SELFPAY | PROVIDERS: PCP Nurse Practitioner; Visit Provider Nurse Practitioner | DX: J20.9 Acute bronchitis, unspecified (principal); J18.9 Pneumonia, unspecified organism | CPT/HCPCS: 71046 ==

== ENCOUNTER → 2022-11-16 16:15 | Outpatient (BNVA) | payer OTHER, SELFPAY | PROVIDERS: PCP Nurse Practitioner; Visit Provider Nurse Practitioner | DX: R25.2 Cramp and spasm (principal) | CPT/HCPCS: 80053; 83735 ==

== ENCOUNTER → 2023-03-01 08:21 | Outpatient (BNVA) | payer MEDICARE, OTHER, SELFPAY | PROVIDERS: PCP Nurse Practitioner; Visit Provider Nurse Practitioner | DX: Z00.00 Encounter for general adult medical examination without abnormal findings (principal); E07.9 Disorder of thyroid, unspecified; E55.9 Vitamin D deficiency, unspecified; E78.2 Mixed hyperlipidemia; I10 Essential (primary) hypertension | CPT/HCPCS: 80053; 80061; 82306; 84443; 85025 ==

== ENCOUNTER → 2023-04-10 14:04 | Outpatient (BNVA) | payer MEDICARE, OTHER, SELFPAY | PROVIDERS: PCP Nurse Practitioner; Referring Provider Nurse Practitioner; Visit Provider Dermatology | DX: L82.1 Other seborrheic keratosis (principal); I78.8 Other diseases of capillaries; L81.4 Other melanin hyperpigmentation; S90.112A Contusion of left great toe without damage to nail, initial encounter; D18.01 Hemangioma of skin and subcutaneous tissue; Y99.9 Unspecified external cause status | CPT/HCPCS: 99203 ==

== ENCOUNTER → 2023-07-10 13:49 | Outpatient (BNVA) | payer MEDICARE, OTHER, SELFPAY | PROVIDERS: PCP Nurse Practitioner; Visit Provider Dermatology | DX: S90.129A Contusion of unspecified lesser toe(s) without damage to nail, initial encounter (principal); L81.4 Other melanin hyperpigmentation; X58.XXXA Exposure to other specified factors, initial encounter | CPT/HCPCS: 99213 ==

== ENCOUNTER → 2024-03-03 08:38 | Outpatient (BNVA) | payer MEDICARE, OTHER, SELFPAY | PROVIDERS: PCP Nurse Practitioner; Visit Provider Nurse Practitioner Family | DX: I10 Essential (primary) hypertension (principal); Z79.899 Other long term (current) drug therapy; E78.2 Mixed hyperlipidemia; E55.9 Vitamin D deficiency, unspecified; K44.9 Diaphragmatic hernia without obstruction or gangrene; D64.9 Anemia, unspecified; E78.5 Hyperlipidemia, unspecified | CPT/HCPCS: 80053; 80061; 81003; 82306; 82607; 82728; 82746; 83036; 83550; 84443; 85025 ==

== ENCOUNTER → 2024-04-10 13:11 | Outpatient (BNVA) | payer MEDICARE, OTHER, SELFPAY | PROVIDERS: PCP Nurse Practitioner; Visit Provider Nurse Practitioner Family | DX: L57.0 Actinic keratosis (principal); B35.1 Tinea unguium; L82.1 Other seborrheic keratosis; D18.01 Hemangioma of skin and subcutaneous tissue; L81.4 Other melanin hyperpigmentation | CPT/HCPCS: 17000; 99213 ==

== ENCOUNTER → 2024-04-21 14:40 | Outpatient (BNVA) | payer MEDICARE, OTHER, SELFPAY | PROVIDERS: PCP Nurse Practitioner; Referring Provider Nurse Practitioner Family; Visit Provider Obstetrics & Gynecology | DX: Z01.419 Encounter for gynecological examination (general) (routine) without abnormal findings (principal) | CPT/HCPCS: 87624 ==

== ENCOUNTER → 2024-05-06 13:19 | Outpatient (BNVA) | payer MEDICARE, OTHER, SELFPAY | PROVIDERS: PCP Nurse Practitioner; Visit Provider Obstetrics & Gynecology | DX: R10.2 Pelvic and perineal pain (principal) | CPT/HCPCS: 76830 ==

== ENCOUNTER → 2024-05-30 14:11 | Outpatient (BNVA) | payer MEDICARE, OTHER, SELFPAY | PROVIDERS: PCP Nurse Practitioner Family; Visit Provider Nurse Practitioner Family | DX: K44.9 Diaphragmatic hernia without obstruction or gangrene (principal); Q25.46 Tortuous aortic arch; I70.90 Unspecified atherosclerosis | CPT/HCPCS: 71046 ==

== ENCOUNTER → 2024-06-17 16:19 | Outpatient (BNVA) | payer MEDICARE, OTHER, SELFPAY | PROVIDERS: PCP Nurse Practitioner Family; Visit Provider Nurse Practitioner Family | DX: R39.9 Unspecified symptoms and signs involving the genitourinary system (principal) | CPT/HCPCS: 81003; 87086 ==

== ENCOUNTER → 2024-06-24 13:07 | Outpatient (BNVA) | payer MEDICARE, OTHER, SELFPAY | PROVIDERS: PCP Nurse Practitioner Family; Visit Provider Student in an Organized Health Care Education/Training Program | DX: K46.9 Unspecified abdominal hernia without obstruction or gangrene (principal) | CPT/HCPCS: 99204 ==

== ENCOUNTER → 2025-02-20 16:13 | Outpatient (BNVA) | payer MEDICARE, OTHER, SELFPAY | PROVIDERS: PCP Nurse Practitioner Family; Visit Provider Nurse Practitioner Family | DX: L03.011 Cellulitis of right finger (principal); R60.0 Localized edema | CPT/HCPCS: 73140 ==

== ENCOUNTER → 2025-03-03 08:01 | Outpatient (BNVA) | payer MEDICARE, OTHER, SELFPAY | PROVIDERS: PCP Nurse Practitioner Family; Visit Provider Nurse Practitioner Family | DX: D64.9 Anemia, unspecified (principal); E55.9 Vitamin D deficiency, unspecified; E78.2 Mixed hyperlipidemia; E07.9 Disorder of thyroid, unspecified; I10 Essential (primary) hypertension; Z79.899 Other long term (current) drug therapy; U07.1 COVID-19 | CPT/HCPCS: 80053; 80061; 81003; 82306; 82607; 82728; 82746; 83036; 83550; 84443; 85025 ==

== ENCOUNTER → 2025-04-10 10:41 | Outpatient (BNVA) | payer MEDICARE, OTHER, SELFPAY | PROVIDERS: PCP Nurse Practitioner Family; Visit Provider Nurse Practitioner Family | DX: L82.1 Other seborrheic keratosis (principal); D18.01 Hemangioma of skin and subcutaneous tissue; I78.8 Other diseases of capillaries; L81.4 Other melanin hyperpigmentation; L81.5 Leukoderma, not elsewhere classified; L73.8 Other specified follicular disorders; L57.0 Actinic keratosis | CPT/HCPCS: 17000; 99213 ==

== ENCOUNTER 2025-06-04 14:28 | Outpatient (CLI) | payer MEDICARE, OTHER, SELFPAY ==
--- NOTE | 2025-06-04 15:30 | USR_ITS ---
PROCEDURE INFORMATION: Exam: US Soft Tissue Head and Neck, TI-RADS Exam date and time: 06/04/2025 3:57 PM Age: 65 years old Clinical indication: Condition or disease; Thyroid disorder; Other: Unspecified; Disorder of thyroid; Additional info: E07.9 - disorder of thyroid, unspecified TECHNIQUE: Imaging protocol: Real-time ultrasound scan of the neck with image documentation. Exam focused on the thyroid. COMPARISON: [place] thyroid [id number] 01/16/2019 9:47 AM FINDINGS: Right thyroid lobe: Not enlarged. Right thyroid measures 1.4 x 1.2 x 3.1 cm (2.5 mL). Left thyroid lobe: Not enlarged. Left thyroid measures 1.2 x 1.4 x 4.1 cm (3.4 mL). Isthmus: Not thickened. LESION 1: Thyroid nodule 1 Size: 1.5 x 1.2 x 2.3 cm Thyroid nodule 1 Location: Mid left thyroid lobe Thyroid nodule 1 Composition: Mostly solid with a few cystic components Thyroid nodule 1 Echogenicity: Isoechoic Thyroid nodule 1 Shape: Wider than tall Thyroid nodule 1 Margins: Smooth Thyroid nodule 1 Echogenic foci: None Thyroid nodule 1 Points: 3 Lymph nodes: Bilateral cervical lymph nodes are upper normal in size but retain their fatty cori. No enlarged nodes by size criteria. US/US thyroid [id number] IMPRESSION: TI-RADS category TR3, Mildly Suspicious. Follow-up thyroid ultrasound at 1, 3, and 5 years is recommended. (Reference: Sonam) REFERENCES: Sonam FN, Fredy WD, Waldemar EG et al. ACR Thyroid Imaging, Reporting and Data System (TI-RADS): White Paper of the ACR TI-RADS Committee. J Am Thomas Radiol. 2017; 14: 587-595.
== END 2025-06-04 14:29 | disposition home or self-care (01) ==
LOC: RAD 14:29
PROVIDERS: PCP Nurse Practitioner Family; Visit Provider Nurse Practitioner Family
DX: E07.9 Disorder of thyroid, unspecified (principal); R13.10 Dysphagia, unspecified; E04.1 Nontoxic single thyroid nodule; E07.89 Other specified disorders of thyroid
CPT/HCPCS: 76536

== ENCOUNTER 2025-06-04 14:53 | Outpatient (CLI) | payer MEDICARE, OTHER, SELFPAY ==
--- NOTE | 2025-06-04 15:25 | MM_ITS ---
WS: [id number] VIEWS: MLO and CC views both breasts. 3D digital tomosynthesis is also included in this exam. Comparison made with prior exam of 02/21/2012, 03/04/2014, 03/09/2015, 03/14/2016, 03/20/2017, 03/26/2018, 06/04/2019, 07/08/2020, 08/29/2021. 10/03/2022. 12/04/2023.. Findings: There are scattered areas of fibroglandular density. No sign of suspicious mass, tumor calcification or architectural distortion. Stable appearing nodules noted bilaterally. MM/MM scr BI tomosynthesis [id number] Impression: BI-RADS: 2 - Benign FOLLOW-UP: 1 Year Follow-up This mammogram was also analyzed by the Computer Aided Detection System R2 Imag e Pump Servicer Supervisor.
== END 2025-06-04 14:54 | disposition home or self-care (01) ==
LOC: RAD 14:53
PROVIDERS: PCP Nurse Practitioner Family; Visit Provider Nurse Practitioner Family
DX: Z12.31 Encounter for screening mammogram for malignant neoplasm of breast (principal); R92.323 Mammographic fibroglandular density, bilateral breasts; N64.89 Other specified disorders of breast
CPT/HCPCS: 77063; 77067

== ENCOUNTER 2025-07-21 07:53 | Outpatient (CLI) | payer MEDICARE, OTHER, SELFPAY ==
--- NOTE | 2025-07-21 07:59 | FL_ITS ---
WS: [id number] Barium swallow and esophagram, 07/21/2025 Clinical Data: OTHER DYSPHAGIA Comparison: None. Fluoroscopy time: 1min [id number] # of spot films: 50 Findings: The patient swallowed the thick and thin barium, and it flowed through the hypopharynx without hesitation. No stricture, mass, polyp or erosion was seen. No aspiration or penetration occurred. The barium entered the esophagus and there was poor motility throughout. No reflux, stricture, polyp, mass, erosion or ulcer was noted. There was a small sliding hiatal hernia. FL/FL barium swallow [id number] Impression: Poor esophageal motility with a small sliding hiatal hernia.
--- NOTE | 2025-07-21 07:59 | CTR_ITS ---
PROCEDURE INFORMATION: Exam: CT Neck With Contrast Exam date and time: 07/21/2025 8:44 AM Age: 65 years old Clinical indication: Dysphagia / difficulty swallowing; Difficulty swallowing and feels like something is stuck in mid throat since hernia surgery on January 28; Additional info: Thyroid nodule TECHNIQUE: Imaging protocol: Computed tomography of the neck with contrast. Radiation optimization: All CT scans at this facility use at least one of these dose optimization techniques: automated exposure control; mA and/or kV adjustment per patient size (includes targeted exams where dose is matched to clinical indication); or iterative reconstruction. Contrast material: OMNI 350; Contrast volume: 100 ml; Contrast route: INTRAVENOUS (IV); COMPARISON: [place] thyroid [id number] 06/04/2025 3:57 PM RADIATION DOSE METRICS: Total DLP (mGy-cm): 209.23 FINDINGS: Salivary glands: Normal. Glands are normal in size. Pharynx: Unremarkable. No significant tonsillar enlargement. Larynx: Unremarkable. Epiglottis is normal. Thyroid: No enlarged or calcified nodules. Small nodules are present on the left. Trachea: Visualized trachea is unremarkable. Lungs: Mild ground-glass upper lobe pulmonary infiltrates nonspecific in appearance. They may be either chronic or infectious. Lymph nodes: Unremarkable. No lymphadenopathy. Bones/joints: Unremarkable. No acute fracture. Soft tissues: Unremarkable. No significant soft tissue swelling. CT/CT neck w con* [id number] IMPRESSION: 1. No acute findings. 2. Mild upper lobe ground-glass opacities, nonspecific.
[2025-07-21 08:55] LABS: Blood Urea Nitrogen 15 mg/dL (8-23)
[2025-07-21] MEDS: iohexol 350 mg/mL 500 mL Btl (per mL) IV (08:57)
== END 2025-07-21 07:54 | disposition home or self-care (01) ==
LOC: RAD 07:54
PROVIDERS: PCP Nurse Practitioner Family; Visit Provider Specialist
DX: E04.1 Nontoxic single thyroid nodule (principal); R91.8 Other nonspecific abnormal finding of lung field; J84.89 Other specified interstitial pulmonary diseases
CPT/HCPCS: 70491; 74220; 82565; 84520

== ENCOUNTER 2025-07-27 08:12 | Outpatient (CLI) | payer MEDICARE, OTHER, SELFPAY ==
--- NOTE | 2025-07-27 08:18 | FL_ITS ---
WS: [id number] Modified barium swallow, 07/27/2025 Clinical Data: Other dysphagia Comparison: Esophagram, 07/21/2025 Fluoroscopy time: 2min [id number] # of spot films: Findings: The patient did exhibit minimal residue on multiple consistencies but cleared with swallows. There is a trace penetration with thin liquids but no aspiration. The patient propelled the barium tablet normally from the oral cavity into the hypopharynx and the esophagus and finally the stomach. FL/FL barium swallow modifd [id number] Impression: Trace penetration with thin liquids but no aspiration.
== END 2025-07-27 08:13 | disposition home or self-care (01) ==
LOC: RAD 08:14
PROVIDERS: PCP Nurse Practitioner Family; Visit Provider Specialist
DX: E04.1 Nontoxic single thyroid nodule (principal)
CPT/HCPCS: 74230; 92611